=== PATIENT | female | born 1950 | race Two or more races ===

== ENCOUNTER 2024-09-16 19:51 | Emergency (ER) | payer OTHER ==
[~2024-09-16] VITALS: Ht 152.4 cm; Wt 45.0 kg
--- NOTE | 2024-09-16 20:05 | ED.PDOC ---
History of Present Illness HPI Comments 74-year-old female came to the emergency room via EMS for PICC line insertion. Per EMS, she had picked up at [facility], was sent by primary provider for PICC line insertion. Patient has no subjective complaints aside from bouts of diarrhea the past few days. Chief Complaint: Tube Replacement Time Seen by MD: 20:05 Reviewed Notes: Busperson Notes Allergies: Coded Allergies: NO KNOWN ALLERGIES (Unverified , 09/17/24) Information Source: Patient, Emergency Med Personnel Mode of Arrival: Ambulatory Severity: Mild Prehospital treatment: None Past Medical History PAST MEDICAL HISTORY: Cancer, CKF, HTN Surgical History: Denies all surgeries [employer]ERSON History: Denies all [employer] PERSON Hx Family History Family History: Reviewed,noncontributory to illness Social History Smoker: Non-Smoker Alcohol: Denies ETOH Use Drugs: Denies Drug Use Lives In: [facility] Constitutional: denies: chills, diaphoresis, fatigue, fever, malaise, sweats, weakness, others EENTM: denies: blurred vision, double vision, ear bleeding, ear discharge, ear drainage, ear pain, ear ringing, eye pain, eye redness, hearing loss, mouth pain, mouth swelling, nasal discharge, nose bleeding, nose congestion, nose pain, photophobia, tearing, throat pain, throat swelling, voice changes, others Respiratory: denies: cough, hemoptysis, orthopnea, SOB at rest, shortness of breath, SOB with excertion, stridor, wheezing, others Cardiovascular: denies: chest pain, dizzy spells, diaphoresis, Dyspnea on exertion, edema, irregular heart beat, left arm pain, lightheadedness, palpitations, PND, syncope, others Gastrointestinal: denies: abdomen distended, abdominal pain, blood streaked bowels, constipated, diarrhea, dysphagia, difficulty swallowing, hematemesis, melena, nausea, poor appetite, poor fluid intake, rectal bleeding, rectal pain, vomiting, others Genitourinary: denies: abnormal vagina bleeding, burning, dyspareunia, dysuria, flank pain, frequency, hematuria, incontinence, pain, , vagina discharge, urgency, others Neurological: denies: dizziness, fainting, headache, left sided numbness, left sided weakness, numbness, paresthesia, pre-existing deficit, right sided numbness, right sided weakness, seizure, speech problems, tingling, tremors, weakness, others Musculoskeletal: denies: back pain, gout, joint pain, joint swelling, muscle pain, muscle stiffness, neck pain, others Integumetry: denies: bruises, change in color, change in hair/nails, dryness, laceration, lesions, lumps, rash, wounds, others Allergic/Immunocompromised: denies: Difficulty Healing, Frequent Infections, Hives, Itching, others Hematologic/Lymphatic: denies: anemia, blood clots, easy bleeding, easy bruising, swollen glands, others Endocrine: denies: excessive hunger, excessive sweating, excessive thirst, excessive urination, flushing, intolerance to cold, intolerance to heat, unexplained weight gain, unexplained weight loss, others Psychiatric: denies: anxiety, bipolar disorder, depression, hopeless, panic disorder, schizophrenia, sleepless, suicidal, others Physical Exam General Appearance: No Apparent Distress, Normal HEENT: Normal ENT Inspection, Pharynx Normal, TMs Normal Neck: Full Range of Motion, Non-Tender, Normal, Normal Inspection Respiratory: Chest Non-Tender, Lungs Clear, No Accessory Muscle Use, No Respiratory Distress, Normal Breath Sounds Cardiovascular: No Edema, No JVD, No Murmur, No Gallop, Normal Peripheral Pulses, Regular Rate/Rhythm Breast Exam: Deferred Gastrointestinal: No Organomegaly, Non Tender, No Pulsatile Mass, Normal Bowel Sounds, Soft Genitalia: Deferred Pelvic: Deferred Rectal: Deferred Extremities: No calf tenderness, Normal capillary refill, Normal inspection, Normal range of motion, Non-tender, No pedal edema Musculoskeletal : Apperance: Normal Neurologic: Alert, well logger II-XII nml as Tested, No Motor Deficits, Normal Affect, Normal Mood, No Sensory Deficits Cerebellar Function: Normal Reflexes: Normal Skin: Dry, Normal Color, Warm Lymphatic: No Adenopathy Was a procedure done? Was a procedure done?: No Differential Dx Considerations may include: Anemia, electrolyte imbalance, sepsis, UTI, pneumonia X-Ray, Labs, Meds, VS Vital Signs Date Time Temp Pulse Resp B/P (MAP) Pulse Ox O2 Delivery O2 Flow Rate FiO2 09/17/24 10:40 74 14 157/50 (85) 98 09/17/24 10:40 157/50 09/17/24 09:44 183/70 09/17/24 07:30 97.7 80 19 183/70 (107) 97 97.7 09/17/24 07:30 80 19 97 Room Air* 0 21 09/17/24 06:43 77 16 186/63 (104) 96 09/17/24 05:50 77 20 182/75 (110) 99 09/17/24 04:50 195/71 (112) 09/17/24 04:44 195/62 (106) 09/17/24 03:44 83 157/69 09/17/24 03:44 83 14 157/69 (98) 99 09/17/24 03:13 95 17 190/70 (110) 95 09/17/24 02:03 95 18 173/75 (107) 95 09/17/24 01:14 92 183/65 09/17/24 00:50 86 16 183/65 (104) 93 09/16/24 22:53 19 97 Room Air* 0 21 21 09/16/24 22:48 98.8 83 19 164/97 (119) 97 98.8 09/16/24 19:51 97.8 80 14 162/76 (104) 96 Lab Test 09/17/24 09:03 09/17/24 03:30 09/16/24 20:25 09/16/24 20:17 Range/Units Prothrombin Time 10.3 9.3-11.8 sec Prothrombin Time INR 0.97 0.9-1.15 Activated Partial Thromboplast Time 25.3 24.5-34.5 SEC Urine Color Yellow Yellow Urine Clarity Clear Clear Urine pH 6.0 5.0-9.0 Urine Specific [place] 1.035 1.001-1.035 Urine Protein 1+ H Negative Urine Ketones Trace Negative Urine Blood Negative Negative /uL Urine Nitrite Negative Negative Urine Bilirubin Negative Negative Urine Urobilinogen Normal Negative mg/dL Urine Leukocyte Esterase Negative Negative /uL Urine RBC 23 0 - 4 /hpf Urine WBC 7 0 - 5 /hpf Urine Squamous Epithelial Cells Few <5 /hpf Urine Calcium Oxalate Crystals Mod None Seen Urine Bacteria None seen None Seen /hpf Urine Mucus Few None Seen Urine Glucose Normal Normal mg/dL Lactic Acid Level 1.9 0.4-2.0 mmol/L B-Type Natriuretic Peptide 256.69 0-100 pg/mL White Blood Count 11.6 H 4.4-10.8 10^3/uL Red Blood Count 3.60 L 4.0-5.20 10^6/uL Hemoglobin 11.4 L 12.2-16.2 g/dL Hematocrit 35.9 L 36.0-46.0 % Mean Corpuscular Volume 99.8 80.0-100.0 fL Mean Corpuscular Hemoglobin 31.6 28.0-32.0 pg Mean Corpuscular Hemoglobin Concent 31.6 L 32.0-36.0 g/dL Red Cell Distribution Width 20.3 H 11.8-14.3 % Platelet Count 312 140-450 10^3/uL Mean Platelet Volume 7.3 6.9-10.8 fL Neutrophils (%) (Auto) 79.3 37.0-80.0 % Lymphocytes (%) (Auto) 7.6 L 10.0-50.0 % Monocytes (%) (Auto) 6.8 0.0-12.0 % Eosinophils (%) (Auto) 5.5 0.0-7.0 % Basophils (%) (Auto) 0.8 0.0-2.0 % Neutrophils # (Auto) 9.2 H 1.6-8.6 10 ^3/uL Lymphocytes # (Auto) 0.9 0.4-5.4 10 ^3/uL Monocytes # (Auto) 0.8 0-1.3 10 ^3/uL Eosinophils # (Auto) 0.6 0-0.8 10 ^3/uL Basophils # (Auto) 0.1 0-0.2 10 ^3/uL Nucleated Red Blood Cells 0.0 % Sodium Level 143 136-145 mmol/L Potassium Level 3.5 3.5-5.1 mmol/L Chloride Level 109 H 98-107 mmol/L Carbon Dioxide Level 29 20-31 mmol/L Anion Gap 5 5-15 Blood Urea Nitrogen 25 H 9-23 mg/dL Creatinine 0.58 0.550-1.02 mg/dL Glomerular Filtration Rate Calc 95 >90 mL/min BUN/Creatinine Ratio 43.1 H 10.0-20.0 Serum Glucose 123 H 74-106 mg/dL Calcium Level 9.0 8.7-10.4 mg/dL Current Medications Medications (Trade) Dose Ordered Sig/Choco Route Start Time Stop Time Status Last Admin Metoprolol Tartrate (Lopressor Tablet) 25 mg ONCE ONCE PO 09/17/24 00:30 09/17/24 00:35 DC 09/17/24 01:14 Clonidine HCl (Catapres Tablet) 0.1 mg ONCE ONCE GT 09/17/24 09:00 09/17/24 09:01 DC 09/17/24 09:44 CHEST RADIOGRAPH Indication: weakness Technique: Single frontal view of the chest was obtained COMPARISON: None FINDINGS: Lines and Tubes: None Lungs: Chronic interstitial pulmonary fibrosis. No clear evidence of pneumonia Pleura: No effusion. No pneumothorax. Cardiomediastinal contours: Unremarkable Bones: Unremarkable IMPRESSION: 1. No acute disease. X-Ray, Labs, Meds, VS Comment Course in the emergency department eventful patient came in to replace PICC line was infiltrated she is 74 and in no acute distress The chest x-ray is normal CBC [id number] with 79% neutrophils H&H 11 and 36 Urine negative Blood sugar [address] BNP 256.7 Patient had her PICC line she is stable and will be transferred to [facility] I spoke to the [place] doctor annual arranged the transfer Time of 1ST Reevaluation: 20:01 Reevaluation 1ST: Unchanged Time of 2ND Reevaluation: 11:26 Reevaluation 2ND: Improved Patient Education/Counseling: Diagnosis, Treatment Family Education/Counseling: No Family Present Departure 1 Departure Time of Disposition: 12:40 Impression: Primary Impression: Occluded PICC line Qualified Codes: T82.898A - Other specified complication of vascular prosthetic devices, implants and grafts, initial encounter Additional Impression: Peripherally inserted central catheter (PICC) in place Disposition: 04 [facility]MED[facility]ATE [facility]ARE FACILITY Condition: Fair Additional Instructions: Follow up with your PCP Discharged With: [employer] Critical Care Note Critical Care Time?: No Stability Stability form required: No Heart Score Heart Score: Heart Score Response (Comments) Value History N/A 0 EKG N/A 0 Age N/A 0 Risk Factors N/A 0 Troponin N/A 0 Total 0 I personally scribed for MELISSA KIRBY MD ([email or web address]) on 09/16/24 at 20:05. Electronically submitted by Abrahan Greenberg ([email or web address]). I personally scribed for MELISSA KIRBY MD ([email or web address]) on 09/16/24 at 22:42. Electronically submitted by Abrahan Greenberg ([email or web address]). MELISSA KIRBY MD Sep 16, 2024 20:05 MARTHA PARKER MD Sep 17, 2024 11:27
--- NOTE | 2024-09-16 20:33 | DVH ---
CHEST RADIOGRAPH Indication: weakness Technique: Single frontal view of the chest was obtained COMPARISON: None FINDINGS: Lines and Tubes: None Lungs: Chronic interstitial pulmonary fibrosis. No clear evidence of pneumonia Pleura: No effusion. No pneumothorax. Cardiomediastinal contours: Unremarkable Bones: Unremarkable IMPRESSION: 1. No acute disease.
[2024-09-16 20:54] LABS: Anion Gap 5 (5-15); Carbon Dioxide 29 mmol/L (20-31); Sodium 143 mmol/L (136-145)
[2024-09-16 20:57] LABS: Basophils # (auto) 0.1 10 ^3/uL (0-0.2); Basophils % (auto) 0.8 % (0.0-2.0); Eosinophils # (auto) 0.6 10 ^3/uL (0-0.8); Eosinophils % (auto) 5.5 % (0.0-7.0); Hematocrit 35.9 % (36.0-46.0); Hemoglobin 11.4 g/dL (12.2-16.2); Lymphocytes # (auto) 0.9 10 ^3/uL (0.4-5.4); Lymphocytes % (auto) 7.6 % (10.0-50.0); Mean Corpuscular Hemoglobin 31.6 pg (28.0-32.0); Mean Corpuscular Hgb Conc. 31.6 g/dL (32.0-36.0); Mean Corpuscular Volume 99.8 fL (80.0-100.0); Monocytes # (auto) 0.8 10 ^3/uL (0-1.3); Monocytes % (auto) 6.8 % (0.0-12.0); Neutrophils # (auto) 9.2 10 ^3/uL (1.6-8.6); Neutrophils % (auto) 79.3 % (37.0-80.0); Platelet Count (auto) 312 10^3/uL (140-450); White Blood Cell 11.6 10^3/uL (4.4-10.8)
[2024-09-16 21:00] LABS: BUN/Creatinine Ratio 43.1 (10.0-20.0)
[2024-09-16 21:13] LABS: Red Cell Distribution Width 20.3 % (11.8-14.3)
[2024-09-16 21:15] LABS: Blood Urea Nitrogen 25 mg/dL (9-23); Chloride 109 mmol/L (98-107); Glucose 123 mg/dL (74-106); Potassium 3.5 mmol/L (3.5-5.1)
[2024-09-16 22:53] VITALS: RESP 19; O2SAT 97
[2024-09-17] MEDS: METOPROLOL TARTRATE 25 MG TAB PO ONE (01:14)
[2024-09-17 03:42] LABS: Urine Bacteria None Seen /hpf (None Seen)
[2024-09-17 03:56] LABS: Urine Blood Negative /uL (Negative); Urine Clarity Clear (Clear); Urine Color Yellow (Yellow); Urine Mucus FEW (None Seen); Urine Protein, UAD 1+ (Negative); Urine Specific Gravity 1.035 (1.001-1.035); Urine Squamous Epithelial Cell FEW /hpf (<5); Urine Urobilinogen Normal (Negative); Urine WBC 7 /hpf (0 - 5)
[2024-09-17 07:30] VITALS: PULSE 80; RESP 19; TEMP 97.7; O2SAT 97
[2024-09-17 09:35] LABS: INR 0.97 (0.9-1.15); Partial Thromboplastin Time 25.3 SEC (24.5-34.5); Prothrombin Time 10.3 sec (9.3-11.8)
[2024-09-17] MEDS: cloNIDine HCL 0.1 MG TAB GT ONE (09:44)
[2024-09-17 12:00] VITALS: BP 150/60; PULSE 70; RESP 14; O2SAT 96
== END 2024-09-17 13:04 | disposition home or self-care (01) ==
LOC: EDBD 19:51 → ER 19:51
DX: T82.898A Other specified complication of vascular prosthetic devices, implants and grafts, initial encounter (principal); I12.9 Hypertensive chronic kidney disease with stage 1 through stage 4 chronic kidney disease, or unspecified chronic kidney disease; N18.9 Chronic kidney disease, unspecified; Z45.2 Encounter for adjustment and management of vascular access device; Z85.9 Personal history of malignant neoplasm, unspecified; Y71.2 Prosthetic and other implants, materials and accessory cardiovascular devices associated with adverse incidents; Y92.89 Other specified places as the place of occurrence of the external cause
CPT/HCPCS: 36415; 71045; 80048; 81001; 83605; 83880; 85025; 85610; 85730; 87040